=== PATIENT | male | born 1930 | race Caucasian/White ===

== ENCOUNTER 2017-05-08 11:09 | Inpatient (IN) | payer OTHER, MEDICARE ==
[~2017-05-08] VITALS: Ht 180.3 cm; Wt 71.8 kg
[2017-05-08 11:23] LABS: APPEARANCE CLEAR ((CLEAR)); BILIRUBIN NEGATIVE; BLOOD NEGATIVE; COLOR STRAW ((YELLOW)); GLUCOSE (STRIP) 150; KETONES 20; LEUKOCYTES NEGATIVE; NITRITE NEGATIVE; PROTEIN (STRIP) 30; SPECIFIC GRAVITY 1.015 (1.000-1.030); UCUL ADDED? NO; UROBILINOGEN 0.2 MG/DL (0.2-1.0)
[2017-05-08 13:15] LABS: HEMATOCRIT 36.5 % (38.0-50.0); HEMOGLOBIN 12.1 G/DL (12.5-16.6); MCH 31.1 PG (29.0-34.0); MCHC 33.2 G/DL (30.0-36.0); MCV 93.8 FL (86-99); PLATELET COUNT 227 K/uL (156-360); RBC DIS.WIDTH-CV 12.3 % (11.8-14.6); RBC DIS.WIDTH-SD 42.6 % (39-53); RED BLOOD COUNT 3.89 M/uL (4.00-5.50); WHITE BLOOD COUNT 11.8 K/uL (4.1-10.2)
[2017-05-08 13:24] LABS: ALBUMIN 4.1 g/dL (3.2-4.8); CHLORIDE 104 mEq/L (99-109); POTASSIUM 5.6 mEq/L (3.7-5.4); SODIUM 139 mEq/L (136-147)
[2017-05-08 13:26] LABS: GLUCOSE 199 mg/dL (70-99); TOTAL PROTEIN 7.7 g/dL (6.4-8.3)
[2017-05-08 13:28] LABS: TOTAL BILIRUBIN 0.6 mg/dL (0.0-1.0)
[2017-05-08 13:30] LABS: ALKALINE PHOSPHATASE 95 IU/L (3-129); GFR ESTIMATE (CALCULATED) 34 mL/min/ (58.99-99999)
[2017-05-08 13:31] LABS: UREA NITROGEN (BUN) 46 mg/dL (9-23)
[2017-05-08 13:32] LABS: AST (GOT) 29 IU/L (2-34)
[2017-05-08 13:33] LABS: ALT (GPT) 24 IU/L (3-49)
[2017-05-08] MEDS ORDERED: LOPRESSOR25 MG PO (15:17)
[2017-05-08] MEDS ORDERED: METFORMIN HCL850 MG PO (15:18)
[2017-05-08] MEDS ORDERED: CHOLESTEROL PO (15:20)
[2017-05-08 18:20] VITALS: BP 130/61
[2017-05-08 20:03] VITALS: BP 114/56
[2017-05-08 23:53] VITALS: BP 106/51
[2017-05-09 03:51] VITALS: BP 103/54
[2017-05-09 05:04] LABS: UR CREATININE CONCENTRATION 84.7 MG/DL
[2017-05-09 07:54] LABS: HEMATOCRIT 28.8 % (38.0-50.0); MCH 30.6 PG (29.0-34.0); MCHC 31.9 G/DL (30.0-36.0); MCV 95.7 FL (86-99); PLATELET COUNT 175 K/uL (156-360); RBC DIS.WIDTH-CV 12.6 % (11.8-14.6); RBC DIS.WIDTH-SD 44.3 % (39-53); WHITE BLOOD COUNT 6.2 K/uL (4.1-10.2)
[2017-05-09 07:56] LABS: HEMOGLOBIN 9.2 G/DL (12.5-16.6); RED BLOOD COUNT 3.01 M/uL (4.00-5.50)
[2017-05-09 08:54] VITALS: BP 102/51
[2017-05-09 10:20] LABS: CHLORIDE 108 MEQ/L (99-109); CREATININE 1.8 MG/DL (0.6-1.3); GFR ESTIMATE (CALCULATED) 38 mL/min/ (58.99-99999); POTASSIUM 4.5 MEQ/L (3.7-5.4); SODIUM 139 MEQ/L (136-147); UREA NITROGEN (BUN) 41 mg/dL (9-23)
[2017-05-09 10:21] LABS: GLUCOSE 105 mg/dL (70-99)
[2017-05-09 11:43] VITALS: BP 112/52
[2017-05-09 16:19] VITALS: BP 138/60
[2017-05-09] MEDS ORDERED: JANUVIA25 MG PO (17:29)
[2017-05-09] MEDS ORDERED: TAMSULOSIN HCL0.4 MG PO (17:29)
== END 2017-05-09 18:06 | disposition home or self-care (01) | DRG 694 ==
LOC: EME 11:09 → EDOF 15:47 → 2EAST 15:47 → ENRESERV 15:49 → 2EAST 17:57
PROVIDERS: Internal Medicine
DX: N20.2 Calculus of kidney with calculus of ureter (principal); N17.9 Acute kidney failure, unspecified; E87.5 Hyperkalemia; I25.10 Atherosclerotic heart disease of native coronary artery without angina pectoris; E11.9 Type 2 diabetes mellitus without complications; I10 Essential (primary) hypertension; E78.5 Hyperlipidemia, unspecified; Z95.1 Presence of aortocoronary bypass graft; N21.0 Calculus in bladder; Z87.891 Personal history of nicotine dependence; E86.0 Dehydration; Z79.4 Long term (current) use of insulin
CPT/HCPCS: 74176; 76870; 80048; 80053; 81003; 82570; 82575; 82948; 83935; 84133; 84156; 84300; 85027; 93005; 99281; 99285; J1650; J2270; J2405; J7030

== ENCOUNTER 2017-05-27 14:37 | Observation (INO) | payer OTHER, MEDICARE ==
[~2017-05-27] VITALS: Ht 177.8 cm; Wt 68.2 kg
[~2017-05-27 14:37] MED LIST: CHOLESTEROL PO; JANUVIA25 MG PO; LOPRESSOR25 MG PO; METFORMIN HCL850 MG PO; TAMSULOSIN HCL0.4 MG PO
[2017-05-27 15:08] LABS: HEMATOCRIT 32.9 % (38.0-50.0); HEMOGLOBIN 10.8 G/DL (12.5-16.6); MCH 31.2 PG (29.0-34.0); MCHC 32.8 G/DL (30.0-36.0); MCV 95.1 FL (86-99); PLATELET COUNT 198 K/uL (156-360); RBC DIS.WIDTH-CV 12.5 % (11.8-14.6); RBC DIS.WIDTH-SD 43.3 % (39-53); RED BLOOD COUNT 3.46 M/uL (4.00-5.50); WHITE BLOOD COUNT 8.4 K/uL (4.1-10.2)
[2017-05-27 15:17] LABS: ALBUMIN 3.6 g/dL (3.2-4.8); CHLORIDE 106 mEq/L (99-109); POTASSIUM 5.7 mEq/L (3.7-5.4); SODIUM 138 mEq/L (136-147)
[2017-05-27 15:20] LABS: GLUCOSE 150 mg/dL (70-99); TOTAL PROTEIN 6.7 g/dL (6.4-8.3)
[2017-05-27 15:22] LABS: TOTAL BILIRUBIN 0.7 mg/dL (0.0-1.0)
[2017-05-27 15:23] LABS: ALKALINE PHOSPHATASE 90 IU/L (3-129); CREATININE 2.1 mg/dL (0.6-1.3); GFR ESTIMATE (CALCULATED) 32 mL/min/ (58.99-99999)
[2017-05-27 15:24] LABS: UREA NITROGEN (BUN) 31 mg/dL (9-23)
[2017-05-27 15:25] LABS: AST (GOT) 19 IU/L (2-34)
[2017-05-27 15:26] LABS: ALT (GPT) 14 IU/L (3-49)
[2017-05-27 15:27] LABS: LIPASE 22 U/L (1.0-51.0)
[2017-05-27 16:46] LABS: APPEARANCE CLEAR ((CLEAR)); BILIRUBIN NEGATIVE; BLOOD SMALL; COLOR YELLOW ((YELLOW)); GLUCOSE (STRIP) 50; KETONES 5; LEUKOCYTES NEGATIVE; NITRITE NEGATIVE; PROTEIN (STRIP) 100; SPECIFIC GRAVITY 1.015 (1.000-1.030); UROBILINOGEN 0.2 MG/DL (0.2-1.0)
[2017-05-27 16:55] LABS: BACTERIA NONE SEEN /HPF; CALCIUM OXALATE CRYSTALS 1+ /HPF; EPITHELIAL CELLS RARE /HPF; MUCUS TRACE /LPF; UCUL ADDED? NO; WHITE BLOOD CELLS 0-5 /HPF (0-5)
[2017-05-27] MEDS ORDERED: ACTOS30 MG PO (19:24)
[2017-05-27] MEDS ORDERED: ZOCOR20 MG PO (19:24)
[2017-05-27] MEDS ORDERED: B-121000 MC2 PO (19:25)
[2017-05-27] MEDS ORDERED: CALCIUM 500 +1 EACH PO (19:25)
[2017-05-28] VITALS (7 sets, daily range): BP systolic 127–161; BP diastolic 60–82
[2017-05-28 04:51] LABS: BASOPHIL (%) 0.5 % (0-1); EOSINOPHIL (%) 0.6 % (0-5); HEMATOCRIT 29.9 % (38.0-50.0); HEMOGLOBIN 9.8 G/DL (12.5-16.6); IMMATURE GRANULOCYTE (%) 0.6 % (0.0-0.7); LYMPHOCYTE (%) 25.2 % (15-42); LYMPHOCYTE COUNT 1.7 K/uL (1.0-2.8); MCH 31.7 PG (29.0-34.0); MCHC 32.8 G/DL (30.0-36.0); MCV 96.8 FL (86-99); MONOCYTE (%) 7.5 % (3-12); MONOCYTE COUNT 0.5 K/uL (0-0.8); NEUTROPHIL (%) 65.6 % (45-76); NEUTROPHIL COUNT 4.3 K/uL (1.8-6.4); PLATELET COUNT 156 K/uL (156-360); RBC DIS.WIDTH-CV 12.6 % (11.8-14.6); RBC DIS.WIDTH-SD 44.3 % (39-53); RED BLOOD COUNT 3.09 M/uL (4.00-5.50); WHITE BLOOD COUNT 6.5 K/uL (4.1-10.2)
[2017-05-28 05:06] LABS: CHLORIDE 108 mEq/L (99-109); POTASSIUM 5.1 mEq/L (3.7-5.4); SODIUM 138 mEq/L (136-147)
[2017-05-28 05:11] LABS: GFR ESTIMATE (CALCULATED) 34 mL/min/ (58.99-99999)
[2017-05-28 05:12] LABS: UREA NITROGEN (BUN) 32 mg/dL (9-23)
[2017-05-28 05:28] LABS: GLUCOSE 110 mg/dL (70-99)
[2017-05-29 05:17] LABS: BASOPHIL (%) 0.9 % (0-1); EOSINOPHIL (%) 2.3 % (0-5); EOSINOPHIL COUNT 0.1 K/uL (0-0.3); HEMATOCRIT 25.6 % (38.0-50.0); HEMOGLOBIN 8.1 G/DL (12.5-16.6); IMMATURE GRANULOCYTE (%) 0.5 % (0.0-0.7); LYMPHOCYTE (%) 32.8 % (15-42); LYMPHOCYTE COUNT 1.4 K/uL (1.0-2.8); MCH 30.7 PG (29.0-34.0); MCHC 31.6 G/DL (30.0-36.0); MONOCYTE (%) 7.5 % (3-12); MONOCYTE COUNT 0.3 K/uL (0-0.8); NEUTROPHIL COUNT 2.5 K/uL (1.8-6.4); PLATELET COUNT 133 K/uL (156-360); RBC DIS.WIDTH-CV 12.5 % (11.8-14.6); RED BLOOD COUNT 2.64 M/uL (4.00-5.50); WHITE BLOOD COUNT 4.4 K/uL (4.1-10.2)
[2017-05-29 05:51] LABS: CHLORIDE 107 MEQ/L (99-109); CREATININE 2.3 MG/DL (0.6-1.3); GFR ESTIMATE (CALCULATED) 29 mL/min/ (58.99-99999); GLUCOSE 99 mg/dL (70-99); POTASSIUM 4.9 MEQ/L (3.7-5.4); SODIUM 136 MEQ/L (136-147); UREA NITROGEN (BUN) 35 mg/dL (9-23)
[2017-05-29 08:48] LABS: HEMATOCRIT 31.6 % (38.0-50.0); HEMOGLOBIN 9.9 G/DL (12.5-16.6); MCV 96.9 FL (86-99)
[2017-05-29 11:38] VITALS: BP 158/88
[2017-05-29] MEDS ORDERED: TAMSULOSIN HCL0.4 MG PO (12:17)
== END 2017-05-29 15:18 | disposition home or self-care (01) ==
LOC: EME 14:37 → EDOF 21:12 → 4SOUTH 21:12 → EDOF 21:12 → ENRESERV 21:14 → 4SOUTH 23:14
PROVIDERS: Hospitalist
DX: N13.2 Hydronephrosis with renal and ureteral calculous obstruction (principal); N17.9 Acute kidney failure, unspecified; I12.9 Hypertensive chronic kidney disease with stage 1 through stage 4 chronic kidney disease, or unspecified chronic kidney disease; N18.3 Chronic kidney disease, stage 3 (moderate); E11.22 Type 2 diabetes mellitus with diabetic chronic kidney disease; I25.10 Atherosclerotic heart disease of native coronary artery without angina pectoris; Z95.1 Presence of aortocoronary bypass graft; E87.5 Hyperkalemia; K59.00 Constipation, unspecified; Z87.442 Personal history of urinary calculi; R60.0 Localized edema; E78.5 Hyperlipidemia, unspecified; Z87.891 Personal history of nicotine dependence
CPT/HCPCS: 74176; 80048; 80053; 81003; 82948; 83690; 84132 91; 85014; 85018; 85025; 85027; 87040; 93005; 93970; 99281; 99285; C1769; C2625; G0378; J0330; J0690; J1100; J1644; J2405; J3010; J7030; J7040